=== PATIENT | male | born 1975 | race Caucasian/White ===

== ENCOUNTER → 2020-10-09 | Outpatient (CLI) | payer BC | LOC: EROP 12:01 | DX: U07.1 COVID-19 (principal) | CPT/HCPCS: U0002 ==

== ENCOUNTER → 2021-04-23 | Outpatient (CLI) | payer BC | LOC: KOH-I 08:57 | DX: S99.922A Unspecified injury of left foot, initial encounter (principal); M79.675 Pain in left toe(s); M19.072 Primary osteoarthritis, left ankle and foot | CPT/HCPCS: 73630 ==